=== PATIENT | female | born 2000 | race Caucasian/White ===

== ENCOUNTER 2024-05-09 15:59 | Emergency (ER) | payer BC ==
[2024-05-09 16:59] VITALS: RESP 18
--- NOTE | 2024-05-09 18:03 | ERPHSYRPT ---
- History of Present Illness Time Seen by Provider: 05/09/24 18:02 Source: patient Exam Limitations: no limitations Patient Subjective Stated Complaint: was running and ankle rolled and felt a pop. layed on the ground until family could come and get her Triage Nursing Assessment: alert and oriented, unable to bear weight, Physician History: The patient, with a history of ankle sprains, presented with a new ankle injury sustained while running. She reported immediate pain upon injury, which was localized to the back of the ankle, more towards the lateral side. The patient described the pain as significant, but was unsure if it was related to concurrent boyer splints. The patient's pain was exacerbated upon palpation of the affected area. The patient's daily activities, including work, require weight-bearing, which is currently challenging due to the injury. She has a previous walking boot from a similar injury five years ago, which she plans to use for support and compression. Method of Injury: fell Occurred: just prior to arrival Quality: constant, throbbing Severity of Pain-Max: severe Severity of Pain-Current: severe Lower Extremities Pain: ankle: right Modifying Factors: Improves With: nothing. Worsens With: movement Associated Symptoms: unable to bear weight, popping sensation Allergies/Adverse Reactions: No Known Drug Allergies Allergy (Unverified 05/09/24 16:59) Home Medications: Escitalopram Oxalate 5 mg PO DAILY 05/09/24 [History] norethindrone ac-eth estradioL [Microgestin 21 1.5-30 Tab] 1 tab PO DAILY 05/09/24 [History] Hx Tetanus, Diphtheria Vaccination/Date Given: Yes Hx Pneumococcal Vaccination/Date Given: No Immunizations Up to Date: No Travel Risk - International Travel Have you traveled outside of the country in past 3 weeks: No - Emerging Infectious Disease Are you exhibiting symptoms associated with any current EIDs: No - Review of Systems All Other Systems: Reviewed and Negative - Past Medical History Pertinent Past Medical History: No Neurological History: No Pertinent History ENT History: No Pertinent History Cardiac History: No Pertinent History Respiratory History: No Pertinent History Endocrine Medical History: No Pertinent History Musculoskeletal History: No Pertinent History GI Medical History: No Pertinent History History: No Pertinent History Psycho-Social History: Anxiety Female Reproductive Disorders: No Pertinent History Other Medical History: left fractured ankle 5 years ago. - Past Surgical History Past Surgical History: No - Female History Hx Last Menstrual Period: 3 weeks Hx Now: No - Social History Smoking Status: Never smoker Exposure to second hand smoke: No Drug Use: none - Social Determinants of Health Will the patient participate in the screening: Yes Do you worry about a steady place to live?: No Do you have any problems with any of the following?: No known problems In the past 12 months,have you had to go without utilities?: No Transportation Issues: No Has anyone in your support network made you feel unsafe?: No Have you or anyone in your house had to go without enough: No - Nursing Vital Signs Nursing Vital Signs: Initial Vital Signs Pulse Rate 69 05/09/24 15:59 Respiratory Rate 18 05/09/24 15:59 Blood Pressure 116/81 05/09/24 15:59 O2 Sat by Pulse Oximetry 98 05/09/24 15:59 Pain Scale Pain Intensity 7 - Physical Exam SpO2: 98 Comments: Right ankle Inspection: no obvious deformities, + swelling Alignment: normal + lateral malleolus TTP FROM Generalized ligamentous laxity: none Anterior Drawer: + Talar Tilt: + Kleiger's Test (ER): - Squeeze: - Heel Thump: - Tinel's: - Arellano: - Adams's Sign: - Strength LE: 5/5 EHL, tibialis anterior, plantar flexion Sensation: subjective normal distal sensation Vasculature: <2 second distal capillary refill LE Skin: no redness, no warmth, + ecchymosis, no rash - Course Nursing assessment & vital signs reviewed: Yes - Radiology Exams Right Ankle X-ray Interpretation: Interpreted by me, Negative - Progress Progress: unchanged Progress Note: No fracture noted, advised use of CAM boot with crutches at this time. Follow up with ortho walk in clinic. Rest, ice, elevate to alleviate swelling. Ibuprofen 800mg TID as needed and Tylenol up to 3g QD as needed. Counseled pt/family regarding: diagnosis, need for follow-up, rad results Medical Desision Making - Diagnostic Testing Diagnostic test were ordered, analyzed, and reviewed by me: Yes Radiological Interpretation: Interpreted by me - Risk of complications Low Risk: Low risk of morbidity from additional dx testing or treatment - Departure Departure Disposition: Home Clinical Impression: Right ankle sprain Condition: Good Critical Care Time: No Referrals: JASMEET HERNANDES NP [Primary Care Provider] - Follow up/PCP as directed Instructions: Ankle sprain
[2024-05-09 18:07] VITALS: BP 125/75; PULSE 98
--- NOTE | 2024-05-09 19:41 | XRAY ---
Indication: Sprain injury. Comparison: None 3 view right ankle demonstrates minimal lateral soft tissue swelling. No other bony, articular, or soft tissue abnormalities.
[2024-05-12 07:17] VITALS: O2SAT 98
== END 2024-05-09 18:17 | disposition home or self-care (01) ==
LOC: ED 15:59
DX: S93.401A Sprain of unspecified ligament of right ankle, initial encounter (principal); X50.0XXA Overexertion from strenuous movement or load, initial encounter; Y93.02 Activity, running; Z79.899 Other long term (current) drug therapy
CPT/HCPCS: 73610; 99282